=== PATIENT | female | born 1980 | race Caucasian/White ===

== ENCOUNTER 2022-04-17 14:03 | Emergency (ER) | payer BC ==
[~2022-04-17] VITALS: Ht 160 cm; Wt 88.0 kg
[2022-04-17] MEDS ORDERED: KETOROLAC TROMETHAMINE 30 MG INJ IM ONE (15:30)
[2022-04-17] MEDS ORDERED: KETOROLAC TROMETHAMINE 30 MG INJ ONE (15:39)
--- NOTE | 2022-04-17 15:48 | NUR ---
PT WAS EVALUATED BY DR AWAD. PT WAS MEDICATED ACCORDING TO ER MD ORDERS. PT TOLERATED TO MEDICATION WITHOUT COMPLICATIONS. PT WAS D/C'd TO HOME. D/C INSTRUCTIONS GIVEN TO THE PT BY DR AWAD.
[2022-04-17 15:52] VITALS: BP 143/92
== END 2022-04-17 15:53 | disposition home or self-care (01) ==
LOC: ER 14:03
DX: R51.9 Headache, unspecified (principal)
CPT/HCPCS: 99283; 96372; J1885; A4663